=== PATIENT | female | born 1935 | race Caucasian/White ===

== ENCOUNTER 2018-05-20 18:39 | Emergency (ER) | payer MEDICARE ==
[~2018-05-20] VITALS: Ht 172.7 cm; Wt 80.3 kg
[2018-05-20 18:56] VITALS: Ht 172.7 cm; Wt 80.3 kg
[2018-05-20 21:41] VITALS: BP 129/75
== END 2018-05-20 21:41 | disposition home or self-care (01) ==
LOC: ED 18:39
DX: S93.601A Unspecified sprain of right foot, initial encounter (principal); J45.909 Unspecified asthma, uncomplicated; I10 Essential (primary) hypertension; F03.90 Unspecified dementia, unspecified severity, without behavioral disturbance, psychotic disturbance, mood disturbance, and anxiety; W22.8XXA Striking against or struck by other objects, initial encounter; Y93.89 Activity, other specified; Y92.89 Other specified places as the place of occurrence of the external cause; Y99.8 Other external cause status
CPT/HCPCS: Q0092

== ENCOUNTER 2019-04-27 13:46 | Emergency (ER) | payer BC, MEDICAID ==
[~2019-04-27] VITALS: Ht 165.1 cm; Wt 78.0 kg
[2019-04-27 14:04] VITALS: Ht 165.1 cm; Wt 78.0 kg
[2019-04-27 16:42] VITALS: BP 137/60
== END 2019-04-27 16:42 | disposition home or self-care (01) ==
LOC: ED 13:46
DX: S70.01XA Contusion of right hip, initial encounter (principal); S30.0XXA Contusion of lower back and pelvis, initial encounter; I10 Essential (primary) hypertension; Z88.2 Allergy status to sulfonamides; W18.30XA Fall on same level, unspecified, initial encounter; Y93.89 Activity, other specified; Y92.89 Other specified places as the place of occurrence of the external cause; Y99.8 Other external cause status; J45.909 Unspecified asthma, uncomplicated

== ENCOUNTER 2019-09-01 09:45 | Emergency (ER) | payer BC, MEDICAID ==
[~2019-09-01] VITALS: Ht 165.1 cm; Wt 77.6 kg
[2019-09-01 10:07] VITALS: Ht 165.1 cm; Wt 77.6 kg
[2019-09-01 14:03] VITALS: BP 120/65
== END 2019-09-01 14:03 | disposition home or self-care (01) ==
LOC: ED 09:45
DX: S51.011A Laceration without foreign body of right elbow, initial encounter (principal); S00.03XA Contusion of scalp, initial encounter; S20.221A Contusion of right back wall of thorax, initial encounter; F03.90 Unspecified dementia, unspecified severity, without behavioral disturbance, psychotic disturbance, mood disturbance, and anxiety; N39.0 Urinary tract infection, site not specified; J45.909 Unspecified asthma, uncomplicated; I10 Essential (primary) hypertension; Z88.2 Allergy status to sulfonamides; Z88.1 Allergy status to other antibiotic agents; W18.30XA Fall on same level, unspecified, initial encounter; Y93.89 Activity, other specified; Y92.89 Other specified places as the place of occurrence of the external cause; Y99.8 Other external cause status
CPT/HCPCS: 90715